=== PATIENT | male | born 1955 | race Caucasian/White ===

== ENCOUNTER 2018-12-23 05:30 | Inpatient (IN) ==
[2018-12-11 13:40] LABS: Basophils % 0.5 % (0.0-0.8); Eosinophils # 0.1 10*3/uL (0.0-0.87); Eosinophils % 2.5 % (0.00-10.9); Hemoglobin 16.3 GM/DL (14.0-18.0); Immature Granulocytes % 0.5 %; Immature Granulocytes Absolute 0.03 #; Lymphocytes # 1.1 10*3/uL (1.4-4.0); Lymphocytes % 20.1 % (21.2-54.2); Mean Corpuscular HGB Conc 32.6 GM/DL (32-36); Mean Corpuscular Volume 95.4 FL (87-102); Mean Platelet Volume 11.8 FL (9.6-12.0); Monocytes % 10.9 % (1.7-12.7); Neutrophils % 65.5 % (38.7-73.9); Platelet Count 160 T/CUMM (130-400); Red Blood Count 5.24 MC/CUMM (3.8-5.5); Red Cell Distribution Width 13.1 % (9.3-17.3); White Blood Count 5.7 T/CUMM (4-12)
[2018-12-11 13:51] LABS: Apearance,Urine CLEAR (Clear); Bilirubin,Urine Negative (Negative); Blood, Urine Negative (Negative); Glucose,Urine (UA) Negative (Negative); Ketones,Urine Negative (Negative); Mucus,Urine Occasional /LPF (Occasional); Nitrite,Urine Negative (Negative); Protein,Urine Negative; Squamous Epithelial Cell,Urine Occasional /HPF (0-10); Urine Color Yellow (Yellow); Urine Specific Gravity 1.019 (1.001-1.035); Urine Urobilinogen < 2.0 EU/DL (0.2-1.0)
[2018-12-11 13:52] LABS: Calcium 9.5 MG/DL (8.5-10.1)
[2018-12-23] MEDS ORDERED: ALVIMOPAN 12 MG CAPSULE ONE (05:45)
[2018-12-23] MEDS ORDERED: SODIUM PHOSPHATE ENEMA 133 ML BOTTLE RECTAL ONE ×2 (05:45→06:20)
[2018-12-23] MEDS ORDERED: cefTRIAXone 1,000 MG VIAL ONE (05:45)
[2018-12-23] MEDS ORDERED: cefTRIAXone 1,000 MG in SYRINGE 1 EACH IV ONE (06:00)
[2018-12-23] MEDS ORDERED: ALVIMOPAN 12 MG CAPSULE PO ONE (06:20)
[2018-12-23] MEDS ORDERED: FAMOTIDINE 20 MG TABLET PO ONE (06:32)
[2018-12-23] MEDS ORDERED: SCOPOLAMINE 1.5 MG PATCH TRANSDERM ONE (06:32)
[2018-12-23] MEDS: LACTATED RINGERS 1,000 ML IV SCH (06:47)
[2018-12-23] MEDS ORDERED: ALBUTEROL 2.5 MG/3 ML NEB RESP TX ONE (08:18)
[2018-12-23] MEDS ORDERED: SUGAMMADEX 200 MG/2 ML VIAL IV ONE (10:51)
[2018-12-23] MEDS ORDERED: HYDROmorphone 2 MG/1 ML VIAL ONE ×2 (10:59→11:27)
[2018-12-23] MEDS ORDERED: ONDANSETRON 4 MG/2 ML VIAL IV PRN ×2 (11:04→11:35)
[2018-12-23 11:08] LABS: Apearance,Urine CLEAR (Clear); Bilirubin,Urine Negative (Negative); Blood, Urine Small mg/dL (Negative); Glucose,Urine (UA) Negative (Negative); Ketones,Urine Negative (Negative); Mucus,Urine Occasional /LPF (Occasional); Nitrite,Urine Negative (Negative); Protein,Urine Negative; RBC,Urine 3 /HPF (0-4); Urine Color Yellow (Yellow); Urine Urobilinogen < 2.0 EU/DL (0.2-1.0); WBC,Urine 1 /HPF (0-6)
[2018-12-23] MEDS: HYDROmorphone 2 MG/1 ML VIAL IV PRN ×2 (11:26→11:39)
[2018-12-23] MEDS ORDERED: HYDROmorphone PCA 30 MG/30 ML SYRINGE IV SCH (11:30)
[2018-12-23] MEDS ORDERED: propofoL 200 MG/20 ML VIAL IV ONE (11:31)
[2018-12-23] MEDS ORDERED: PHENYLEPHRINE DRIP 20 MG/250 ML PREMIX IV ONE (11:31)
[2018-12-23] MEDS ORDERED: SEVOFLURANE 1 UNIT/15 MINUTE INH ONE (11:32)
[2018-12-23] MEDS ORDERED: MIDAZOLAM 2 MG/2 ML VIAL ONE (11:32)
[2018-12-23] MEDS ORDERED: DEXAMETHASONE 4 MG/1 ML VIAL ONE (11:32)
[2018-12-23] MEDS ORDERED: ONDANSETRON 4 MG/2 ML VIAL ONE (11:32)
[2018-12-23] MEDS ORDERED: fentaNYL 250 MCG/5 ML VIAL ONE (11:32)
[2018-12-23] MEDS ORDERED: ACETAMINOPHEN 1,000 MG/100 ML VIAL IV ONE (11:33)
[2018-12-23] MEDS ORDERED: LACTATED RINGERS 2,000 ML IV ONE (11:33)
[2018-12-23] MEDS ORDERED: PHENYLEPHRINE 1 MG/10 ML SYRINGE IV ONE (11:33)
[2018-12-23] MEDS ORDERED: ROCURONIUM 100 MG/10 ML VIAL IV ONE (11:33)
[2018-12-23] MEDS: DEXTROSE 5% NACL 0.45% 1,000 ML IV SCH ×2 (13:25→21:03)
[2018-12-23] MEDS: OXYBUTYNIN XL 10 MG TABLET PO SCH (16:53)
[2018-12-23] MEDS: ALVIMOPAN 12 MG CAPSULE PO SCH (21:01)
[2018-12-24 06:04] LABS: Calcium 8.1 MG/DL (8.5-10.1)
[2018-12-24 06:07] LABS: Basophils % 0.1 % (0.0-0.8); Hematocrit 38.5 VOL% (42.0-52.0); Hemoglobin 12.6 GM/DL (14.0-18.0); Immature Granulocytes % 0.4 %; Immature Granulocytes Absolute 0.05 #; Lymphocytes # 0.7 10*3/uL (1.4-4.0); Lymphocytes % 6.5 % (21.2-54.2); Mean Corpuscular HGB Conc 32.7 GM/DL (32-36); Mean Corpuscular Volume 95.5 FL (87-102); Mean Platelet Volume 12.3 FL (9.6-12.0); Monocytes % 12.8 % (1.7-12.7); Neutrophils % 80.2 % (38.7-73.9); Platelet Count 151 T/CUMM (130-400); Red Blood Count 4.03 MC/CUMM (3.8-5.5); Red Cell Distribution Width 13.2 % (9.3-17.3); White Blood Count 11.2 T/CUMM (4-12)
[2018-12-24] MEDS: DEXTROSE 5% NACL 0.45% 1,000 ML IV SCH (07:04)
[2018-12-24] MEDS: LACTATED RINGERS 1,000 ML IV SCH (07:49)
[2018-12-24] MEDS: OXYBUTYNIN XL 10 MG TABLET PO SCH (08:20)
[2018-12-24] MEDS: ALVIMOPAN 12 MG CAPSULE PO SCH ×2 (08:20→21:44)
[2018-12-24] MEDS ORDERED: oxyCODONE/ACETAMINOPHEN 5-325 MG TABLET PO PRN ×2 (09:14→09:15)
[2018-12-24] MEDS ORDERED: CALCIUM CARBONATE CHEW 500 MG TABLET PO PRN (18:58)
[2018-12-24] MEDS ORDERED: ENALAPRIL 20 MG TABLET PO SCH (21:00)
[2018-12-24] MEDS ORDERED: ATORVASTATIN 10 MG TABLET PO SCH (21:00)
[2018-12-25 07:42] VITALS: BP 142/85
[2018-12-25] MEDS: ALVIMOPAN 12 MG CAPSULE PO SCH (08:23)
[2018-12-25] MEDS: OXYBUTYNIN XL 10 MG TABLET PO SCH (08:23)
== END 2018-12-25 10:40 | disposition home or self-care (01) | DRG 708 ==
LOC: N.OR 05:30 → N.SDSINP 05:31 → N.5E 09:33
PROVIDERS: ADMIT Urology; ATTEND Urology